=== PATIENT | female | born 1995 | race Caucasian/White ===

== ENCOUNTER 2016-07-04 16:01 | Emergency (ER) | payer OTHER | END 2016-07-04 16:54 | disposition home or self-care (01) | LOC: ER 16:01 | DX: Z48.01 Encounter for change or removal of surgical wound dressing (principal); F17.210 Nicotine dependence, cigarettes, uncomplicated; Z88.1 Allergy status to other antibiotic agents; Z88.8 Allergy status to other drugs, medicaments and biological substances ==

== ENCOUNTER 2016-07-28 23:39 | Emergency (ER) | payer OTHER | END 2016-07-29 00:22 | disposition home or self-care (01) | LOC: ER 23:39 | DX: O86.0 Infection of obstetric surgical wound (principal); O99.335 Smoking (tobacco) complicating the puerperium; F17.290 Nicotine dependence, other tobacco product, uncomplicated; Z88.1 Allergy status to other antibiotic agents; Z88.8 Allergy status to other drugs, medicaments and biological substances; Z79.899 Other long term (current) drug therapy ==

== ENCOUNTER 2016-08-13 16:15 | Emergency (ER) | payer OTHER | END 2016-08-13 19:01 | disposition home or self-care (01) | LOC: ER 16:15 | DX: T63.301A Toxic effect of unspecified spider venom, accidental (unintentional), initial encounter (principal); F17.210 Nicotine dependence, cigarettes, uncomplicated; Z88.1 Allergy status to other antibiotic agents; Z88.8 Allergy status to other drugs, medicaments and biological substances ==